=== PATIENT | female | born 1950 | race Two or more races ===

== ENCOUNTER 2019-07-30 11:15 | Outpatient (CLI) | payer OTHER | END 2019-07-30 11:28 | disposition home or self-care (01) | LOC: MRI 11:15 | DX: M25.551 Pain in right hip (principal) | CPT/HCPCS: 73718; 73721 ==

== ENCOUNTER → 2019-08-06 | Outpatient (CLI) | payer OTHER | END | disposition home or self-care (01) | LOC: RAD 11:07 | DX: M54.5 Low back pain (principal) ==

== ENCOUNTER 2019-08-14 08:20 | Outpatient (CLI) | payer OTHER | END 2019-08-14 09:00 | disposition home or self-care (01) | LOC: NUCLEAR 08:20 | DX: C90.00 Multiple myeloma not having achieved remission (principal); C79.51 Secondary malignant neoplasm of bone | CPT/HCPCS: 78816; A9552 ==

== ENCOUNTER → 2019-08-23 08:59 | Outpatient (CLI) | payer OTHER | END | disposition home or self-care (01) | LOC: LAB 08:59 | DX: C90.00 Multiple myeloma not having achieved remission (principal); G89.3 Neoplasm related pain (acute) (chronic); C79.51 Secondary malignant neoplasm of bone; C18.0 Malignant neoplasm of cecum; C25.2 Malignant neoplasm of tail of pancreas; C56.1 Malignant neoplasm of right ovary; D64.89 Other specified anemias; R97.8 Other abnormal tumor markers ==

== ENCOUNTER 2019-09-16 14:01 | Inpatient (IN) | payer OTHER ==
[~2019-09-16] VITALS: Ht 165.1 cm; Wt 83.9 kg
[2019-09-17] MEDS ORDERED: LEVO-T75 MCG PO (07:47)
[2019-09-17] MEDS ORDERED: DECADRON4 MG (07:48)
[2019-09-17] MEDS ORDERED: CARVEDILOL6.25 M1 (07:48)
== END 2019-09-19 02:26 | disposition expired | DRG 871 ==
LOC: ER 14:01 → ICU-2 18:19 → ICU 18:19
PROVIDERS: ADMIT Internal Medicine
PROC: 4A033R1 Measurement of Arterial Saturation, Peripheral, Percutaneous Approach (ICD-10-PCS; principal; 2019-09-16)
PROC: 3E0F7GC Introduction of Other Therapeutic Substance into Respiratory Tract, Via Natural or Artificial Opening (ICD-10-PCS; 2019-09-16)
PROC: B246ZZZ Ultrasonography of Right and Left Heart (ICD-10-PCS; 2019-09-16)
PROC: BT4JZZZ Ultrasonography of Kidneys and Bladder (ICD-10-PCS; 2019-09-18)
PROC: 06HY33Z Insertion of Infusion Device into Lower Vein, Percutaneous Approach (ICD-10-PCS; 2019-09-18)
DX: A41.9 Sepsis, unspecified organism (principal); I50.21 Acute systolic (congestive) heart failure; J96.01 Acute respiratory failure with hypoxia; N17.8 Other acute kidney failure; C90.00 Multiple myeloma not having achieved remission; C79.51 Secondary malignant neoplasm of bone; I13.2 Hypertensive heart and chronic kidney disease with heart failure and with stage 5 chronic kidney disease, or end stage renal disease; N18.5 Chronic kidney disease, stage 5; R65.11 Systemic inflammatory response syndrome (SIRS) of non-infectious origin with acute organ dysfunction; I08.3 Combined rheumatic disorders of mitral, aortic and tricuspid valves; E83.52 Hypercalcemia; E86.0 Dehydration; E87.8 Other disorders of electrolyte and fluid balance, not elsewhere classified